=== PATIENT | female | born 1960 | race Caucasian/White ===

== ENCOUNTER → 2016-09-07 | Outpatient (CLI) | payer MEDICARE, BC ==
[2016-09-07 16:15] LABS: HEMOGLOBIN 10.6 gm/dl (12.3-15.3); RED BLOOD COUNT 4.67 M/UL (4.00-5.10); WHITE BLOOD COUNT 6.4 K/UL (4.5-11.0)
[2016-09-07 16:32] LABS: BUN/CREATININE RATIO 12 (0-10)
== END ==
LOC: RAD 15:14
PROVIDERS: Nurse Practitioner Family
DX: J44.1 Chronic obstructive pulmonary disease with (acute) exacerbation (principal); J98.09 Other diseases of bronchus, not elsewhere classified
CPT/HCPCS: 36415; 71020; 80048; 85025; 86615

== ENCOUNTER → 2016-09-14 | Outpatient (CLI) | payer MEDICARE, BC | LOC: LBRF 16:39 | DX: R19.7 Diarrhea, unspecified (principal) | CPT/HCPCS: 87045; 87046 ==

== ENCOUNTER → 2016-09-21 | Outpatient (CLI) | payer MEDICARE, BC ==
[2016-09-21 13:21] LABS: HEMOGLOBIN 10.8 gm/dl (12.3-15.3); RED BLOOD COUNT 4.74 M/UL (4.00-5.10); WHITE BLOOD COUNT 8.9 K/UL (4.5-11.0)
== END ==
LOC: LAB 12:06
PROVIDERS: Internal Medicine Hematology & Oncology
DX: I81 Portal vein thrombosis (principal)
CPT/HCPCS: 36415; 80053; 82728; 83540; 83550; 85025

== ENCOUNTER → 2016-09-25 | Outpatient (CLI) | payer MEDICARE, BC ==
[~2016-09-25] VITALS: Ht 170.2 cm; Wt 77.1 kg
== END ==
LOC: OPSV 08:22
DX: D62 Acute posthemorrhagic anemia (principal)
CPT/HCPCS: 96365; J1756; J7050

== ENCOUNTER → 2016-11-18 | Outpatient (CLI) | payer MEDICARE, BC | LOC: LAB 10:14 | DX: Z51.81 Encounter for therapeutic drug level monitoring (principal); I81 Portal vein thrombosis; Z79.01 Long term (current) use of anticoagulants | CPT/HCPCS: 36415; 85610 ==

== ENCOUNTER → 2020-07-08 | Outpatient (CLI) | payer MEDICARE, BC ==
[~2020-07-08] MED LIST: ALDACTONE100 MG PO; AUGMENTIN 875-1 EACH PO; CIPRO500 MG PO; COUMADIN2 MG PO; DELSYM30 MG/5 ML PO; DULERA 200 MCG8.8 GM INH; ECOTRIN81 MG PO; FOLIC ACID 1 MG1 MG PO; GLUCOTROL XL 22.5 MG PO; LASIX40 MG PO; MUCINEX DM ER1 EAC1 PO; PROBIOTIC1 EAC3 PO; PROTONIX40 MG PO; SINGULAIR10 MG PO; TESSALON PERLE100 MG PO; ZYRTEC10 MG PO
== END ==
LOC: LAB 09:29
PROVIDERS: Internal Medicine Gastroenterology
DX: I81 Portal vein thrombosis (principal)
CPT/HCPCS: 36415; 80048

== ENCOUNTER 2020-09-09 19:12 | Emergency (ER) | payer MEDICARE, BC ==
[2020-09-09 21:48] LABS: HEMOGLOBIN 11.2 gm/dl (12.3-15.3); RED BLOOD COUNT 3.7 M/UL (4.00-5.10); WHITE BLOOD COUNT 15.5 K/UL (4.5-11.0)
== END 2020-09-10 00:40 | disposition home or self-care (01) ==
LOC: ER1 19:12
PROVIDERS: Physician Assistant
DX: L76.22 Postprocedural hemorrhage of skin and subcutaneous tissue following other procedure (principal); E11.9 Type 2 diabetes mellitus without complications; J45.909 Unspecified asthma, uncomplicated; Z88.5 Allergy status to narcotic agent
CPT/HCPCS: 12011; 85025; 85610; 99283

== ENCOUNTER → 2020-09-16 | Outpatient (CLI) | payer MEDICARE, BC ==
[2020-09-16 14:11] LABS: HEMOGLOBIN 11.8 gm/dl (12.3-15.3); RED BLOOD COUNT 3.95 M/UL (4.00-5.10); WHITE BLOOD COUNT 18.8 K/UL (4.5-11.0)
== END ==
LOC: LAB 13:38
PROVIDERS: Internal Medicine
DX: K76.7 Hepatorenal syndrome (principal); E11.65 Type 2 diabetes mellitus with hyperglycemia
CPT/HCPCS: 36415; 80053; 80061; 83036; 85025

== ENCOUNTER → 2020-12-09 | Outpatient (CLI) | payer MEDICARE, BC | LOC: ECHO 12-06 12:00 | DX: I35.8 Other nonrheumatic aortic valve disorders (principal) | CPT/HCPCS: ECHO; 93306 ==

== ENCOUNTER 2021-01-20 06:54 | Emergency (ER) | payer MEDICARE, BC ==
[2021-01-20 08:49] LABS: HEMOGLOBIN 11.1 gm/dl (12.3-15.3); RED BLOOD COUNT 4.49 M/UL (4.00-5.10); WHITE BLOOD COUNT 22.5 K/UL (4.5-11.0)
[2021-01-20 09:19] LABS: BUN/CREATININE RATIO 39 (0-10)
== END 2021-01-20 12:23 | disposition short-term general hospital (02) ==
LOC: ER1 06:54
PROVIDERS: Student in an Organized Health Care Education/Training Program
DX: U07.1 COVID-19 (principal); K72.91 Hepatic failure, unspecified with coma; E11.9 Type 2 diabetes mellitus without complications; I48.91 Unspecified atrial fibrillation; Z88.5 Allergy status to narcotic agent
CPT/HCPCS: 36600; 70450; 71045; 80053; 80076; 80307; 81001; 82140; 82550; 82553; 82803; 82962; 83605; 83690; 83735; 83874; 83880; 84100; 84439; 84443; 84484; 84702; 85025; 85610; 86140; 87040; 93005; 96372; 96374; 96375; 99285; G0480; J0692; J1630; J2060; J3370; J7030; J7070; P9047; U0002

== ENCOUNTER → 2021-04-07 | Outpatient (CLI) | payer MEDICARE, BC | LOC: OPSV 07:59 | DX: D50.0 Iron deficiency anemia secondary to blood loss (chronic) (principal) | CPT/HCPCS: 96367; J1439 ==

== ENCOUNTER → 2021-04-14 | Outpatient (CLI) | payer MEDICARE, BC ==
[~2021-04-14] VITALS: Ht 170.2 cm; Wt 59.0 kg
== END ==
LOC: OPSV 08:00
DX: D50.0 Iron deficiency anemia secondary to blood loss (chronic) (principal); K92.2 Gastrointestinal hemorrhage, unspecified
CPT/HCPCS: 96365; J1439; J7030

== ENCOUNTER → 2022-02-16 | Outpatient (CLI) | payer MEDICARE, BC ==
[~2022-02-16] VITALS: Ht 170.2 cm; Wt 59.0 kg
== END ==
LOC: OPSV 06:57
DX: Z53.9 Procedure and treatment not carried out, unspecified reason (principal)
CPT/HCPCS: 96365; Q0138

== ENCOUNTER → 2022-02-23 | Outpatient (CLI) | payer MEDICARE, BC ==
[~2022-02-23] VITALS: Ht 170.2 cm; Wt 59.0 kg
== END ==
LOC: OPSV 07:55
DX: Z53.9 Procedure and treatment not carried out, unspecified reason (principal)
CPT/HCPCS: 96365; Q0138